=== PATIENT | female | born 1950 | race Caucasian/White ===

== ENCOUNTER 2021-06-12 13:07 | Inpatient (IN) ==
[2021-06-12] MEDS ORDERED: SODIUM CHLORIDE 0.9% 1,000 ML IV STA (13:11)
[2021-06-12 14:12] LABS: Basophils # 0.1 10*3/uL (0.0-0.2); Basophils % 0.3 % (0.0-0.8); Eosinophils % 0.2 % (0.00-10.9); Hematocrit 35.8 VOL% (35.7-47.0); Hemoglobin 12.4 GM/DL (12.0-16.0); Immature Granulocytes % 0.5 %; Immature Granulocytes Absolute 0.08 #; Lymphocytes # 0.9 10*3/uL (1.4-4.0); Lymphocytes % 5.2 % (21.3-54.2); Mean Corpuscular HGB Conc 34.6 GM/DL (32-36); Mean Corpuscular Volume 82.1 FL (87-102); Mean Platelet Volume 12.1 FL (9.6-12.0); Monocytes % 3.8 % (1.7-12.7); NRBC # 0.04 10*3/uL; Platelet Count 440 T/CUMM (130-400); Red Blood Count 4.36 MC/CUMM (3.8-5.5); Red Cell Distribution Width 15.3 % (9.3-17.3); White Blood Count 17.4 T/CUMM (4-12)
[2021-06-12] MEDS ORDERED: diphenhydrAMINE 50 MG/1 ML VIAL IV STA (14:14)
[2021-06-12] MEDS ORDERED: methylPREDNISolone SOD SUC 125 MG/2 ML VIAL IV STA (14:14)
[2021-06-12] MEDS ORDERED: LEVOFLOXACIN INJ 750 MG in PREMIX 1 EACH IV STA (14:15)
[2021-06-12] MEDS ORDERED: CLINDAMYCIN INJ 900 MG/50 ML PREMIX IV STA (14:15)
[2021-06-12 14:25] LABS: INR 1.8; PT Patient Result 19.8 SECS (10.5-12.0); Partial Thromboplastin Time 23.1 SECS (23.8-32.1)
[2021-06-12 14:27] LABS: Albumin 2.3 G/DL (3.4-5.0); Bilirubin,Total 1.8 MG/DL (0.20-1.00); Osmolality,Calculated 285.8 MOS/KG (273-304); Potassium 2.6 MMOL/L (3.5-5.1); Total Protein 7.4 G/DL (6.4-8.2)
[2021-06-12] MEDS ORDERED: SODIUM CHLORIDE 0.9% 2,700 ML IV ONE (14:37)
[2021-06-12 14:45] LABS: Band Neutrophils 1 % (0-10); Lymphocytes 1 % (20-55); Segmented Neutrophils 95 % (50-85); Total Cells Counted 100
[2021-06-12] MEDS ORDERED: ALBUTEROL 2.5 MG/3 ML NEB RESP TX PRN (15:11)
[2021-06-12] MEDS: POTASSIUM CHLORIDE RIDER 10 MEQ/100 ML PREMIX IV SCH ×2 (15:17→16:19)
[2021-06-12 15:21] LABS: Hypochromia Slight; Platelet Estimate Increased; Schistocytes Slight
[2021-06-12 15:21] LABS: INR 1.7; PT Patient Result 18.8 SECS (10.5-12.0); Partial Thromboplastin Time 29.7 SECS (23.8-32.1)
[2021-06-12] MEDS ORDERED: metroNIDAZOLE INJ 500 MG/100 ML PREMIX IV ONE (15:22)
[2021-06-12] MEDS ORDERED: LEVOFLOXACIN INJ 750 MG/150 ML PREMIX IV ONE (15:22)
[2021-06-12 15:44] LABS: Bacteria,Urine Occasional /HPF (Few); Bilirubin,Urine Negative (Negative); Blood, Urine Small mg/dL (Negative); Glucose,Urine (UA) 50 mg/dL (Negative); Hyaline Casts,Urine 66 /LPF (0-3); Ketones,Urine 5 mg/dL (Negative); Mucus,Urine Few /LPF (Occasional); Nitrite,Urine Negative (Negative); Protein,Urine 100 MG/DL; RBC,Urine 2 /HPF (0-4); Squamous Epithelial Cell,Urine Occasional /HPF (0-10); Urine Appearance CLOUDY (Clear); Urine Color Amber (Yellow); Urine Specific Gravity 1.028 (1.001-1.035); Urine Urobilinogen < 2.0 EU/DL (<2.0)
[2021-06-12] MEDS ORDERED: ROCURONIUM 50 MG/5 ML VIAL IV ONE (15:57)
[2021-06-12] MEDS ORDERED: propofoL 200 MG/20 ML VIAL IV ONE (15:57)
[2021-06-12] MEDS ORDERED: ETOMIDATE 40 MG/20 ML VIAL IV ONE (15:57)
[2021-06-12] MEDS ORDERED: LIDOCAINE 2% 5 ML VIAL ONE (15:57)
[2021-06-12] MEDS ORDERED: SEVOFLURANE 1 UNIT/15 MINUTE INH ONE (15:57)
[2021-06-12] MEDS ORDERED: SUCCINYLCHOLINE 200 MG/10 ML VIAL ONE (15:57)
[2021-06-12] MEDS ORDERED: fentaNYL 100 MCG/2 ML VIAL ONE ×2 (15:57→17:17)
[2021-06-12] MEDS: FAMOTIDINE 20 MG/2 ML VIAL IV SCH (16:01)
[2021-06-12] MEDS ORDERED: PHENYLEPHRINE DRIP 20 MG/250 ML PREMIX IV ONE (16:13)
[2021-06-12] MEDS ORDERED: MIDAZOLAM 2 MG/2 ML VIAL ONE (16:46)
[2021-06-12] MEDS ORDERED: SODIUM BICARBONATE 50 MEQ/50 ML VIAL IV ONE (17:19)
[2021-06-12] MEDS ORDERED: ALBUMIN 5% 12.5 GM/250 ML VIAL IV ONE (17:28)
[2021-06-12] MEDS: LACTATED RINGERS 1,000 ML IV SCH ×2 (17:46→23:14)
[2021-06-12] MEDS: DOPamine 800 MG/250 ML PREMIX IV SCH (17:47)
[2021-06-12 19:57] LABS: ABG Base Excess -10.9 MMOL/L (-2.5-2.5); ABG HCO3 15.9 MMOL/L (20-26); ABG Oxygen Saturation 98.6 % (95-100); ABG PCO2 41.4 MM HG (35-48); ABG PH 7.213 (7.35-7.45); ABG TCO2 15.2 MMOL/L (23-27); Glucose Heart Surgery 140 MG/DL (74-106); Hematocrit Heart Surgery 36.9 PERCENT (37-47)
[2021-06-12 20:00] LABS: Potassium Heart/CVR 2.3 MMOL/L (3.5-5.1)
[2021-06-12] MEDS: PIPERACILLIN/TAZOBACTAM 3,375 MG in SODIUM CHLORIDE 0.9% 100 ML IV SCH (20:10)
[2021-06-12] MEDS: POTASSIUM CHLORIDE RIDER 10 MEQ/100 ML PREMIX IV PRN ×3 (20:29→22:22)
[2021-06-12] MEDS: MIDAZOLAM 100 MG in SODIUM CHLORIDE 0.9% 80 ML IV PRN (22:30)
[2021-06-13] MEDS: POTASSIUM CHLORIDE RIDER 10 MEQ/100 ML PREMIX IV PRN ×11 (00:27→23:14)
[2021-06-13 01:23] LABS: Basophils % 0.3 % (0.0-0.8); Hemoglobin 10.5 GM/DL (12.0-16.0); Immature Granulocytes % 0.7 %; Immature Granulocytes Absolute 0.08 #; Lymphocytes # 0.7 10*3/uL (1.4-4.0); Lymphocytes % 6.7 % (21.3-54.2); Mean Corpuscular Volume 81.3 FL (87-102); Mean Platelet Volume 11.2 FL (9.6-12.0); Monocytes % 3.1 % (1.7-12.7); NRBC # 0.02 10*3/uL; Neutrophils % 89.2 % (38.7-73.9); Platelet Count 392 T/CUMM (130-400); Red Blood Count 3.69 MC/CUMM (3.8-5.5); Red Cell Distribution Width 15.3 % (9.3-17.3)
[2021-06-13 01:39] LABS: Calcium 6.5 MG/DL (8.5-10.1); Osmolality,Calculated 290.3 MOS/KG (273-304)
[2021-06-13 01:43] LABS: Albumin 1.6 G/DL (3.4-5.0); Bilirubin,Total 2.3 MG/DL (0.20-1.00); Calcium 6.4 MG/DL (8.5-10.1); Osmolality,Calculated 289.3 MOS/KG (273-304); Total Protein 5.3 G/DL (6.4-8.2)
[2021-06-13 01:49] LABS: Acanthocytes 1+; Platelet Estimate Increased
[2021-06-13] MEDS: PIPERACILLIN/TAZOBACTAM 3,375 MG in SODIUM CHLORIDE 0.9% 100 ML IV SCH ×3 (02:45→23:40)
[2021-06-13] MEDS: FAMOTIDINE 20 MG/2 ML VIAL IV SCH ×2 (02:46→17:51)
[2021-06-13] MEDS: metroNIDAZOLE INJ 500 MG/100 ML PREMIX IV SCH ×3 (02:46→21:38)
[2021-06-13 03:05] LABS: Lymphocytes 11 % (20-55); Segmented Neutrophils 85 % (50-85); Total Cells Counted 100
[2021-06-13 03:13] LABS: ABG Base Excess -8.2 MMOL/L (-2.5-2.5); ABG HCO3 13.9 MMOL/L (20-26); ABG Oxygen Saturation 99.6 % (95-100); ABG PH 7.456 (7.35-7.45); ABG PO2 481.2 MM HG (80-95); ABG TCO2 14.5 MMOL/L (23-27)
[2021-06-13 03:18] LABS: ABG PCO2 20.2 MM HG (35-48)
[2021-06-13 05:53] LABS: Calcium 6.3 MG/DL (8.5-10.1); Potassium 2.9 MMOL/L (3.5-5.1)
[2021-06-13] MEDS: LACTATED RINGERS 1,000 ML IV SCH ×3 (06:25→16:43)
[2021-06-13] MEDS ORDERED: SEVOFLURANE 1 UNIT/15 MINUTE INH ONE ×3 (10:01→11:25)
[2021-06-13] MEDS ORDERED: ROCURONIUM 50 MG/5 ML VIAL IV ONE (10:01)
[2021-06-13] MEDS: MIDAZOLAM 100 MG in SODIUM CHLORIDE 0.9% 80 ML IV PRN ×2 (10:03→23:50)
[2021-06-13] MEDS ORDERED: MIDAZOLAM 10 MG/2 ML VIAL ONE (10:05)
[2021-06-13] MEDS ORDERED: LIDOCAINE 1%/EPI INJ 20 ML VIAL ONE (10:10)
[2021-06-13] MEDS ORDERED: BUPIVACAINE MPF 0.25% 30 ML VIAL ONE (10:10)
[2021-06-13] MEDS ORDERED: MINERAL OIL/PETROLATUM OPH OINT 3.5 GM TUBE ONE (10:47)
[2021-06-13] MEDS ORDERED: PHENYLEPHRINE 1 MG/10 ML SYRINGE IV ONE (10:48)
[2021-06-13] MEDS ORDERED: SODIUM CHLORIDE 0.9% 250 ML IV ONE (10:53)
[2021-06-13] MEDS ORDERED: PHENYLEPHRINE 10 MG/1 ML VIAL IV ONE (10:54)
[2021-06-13] MEDS ORDERED: MAGNESIUM SULF RIDER 2 GM/50 ML PREMIX IV ONE (11:17)
[2021-06-13] MEDS ORDERED: LACTATED RINGERS 1,000 ML IV ONE (11:25)
[2021-06-13] MEDS: DOPamine 800 MG/250 ML PREMIX IV SCH (16:43)
[2021-06-13] MEDS ORDERED: SODIUM BICARBONATE 50 MEQ/50 ML VIAL IV ONE (17:35)
[2021-06-13] MEDS: SODIUM BICARB INJ 150 MEQ in SODIUM CHLORIDE 0.45% 1,000 ML IV SCH (18:36)
[2021-06-13] MEDS ORDERED: SODIUM CHLORIDE 0.9% 500 ML IV ONE (22:03)
[2021-06-13 22:24] LABS: Basophils % 0.1 % (0.0-0.8); Hematocrit 26.2 VOL% (35.7-47.0); Hemoglobin 9.3 GM/DL (12.0-16.0); Immature Granulocytes % 2.6 %; Immature Granulocytes Absolute 0.21 #; Lymphocytes # 0.7 10*3/uL (1.4-4.0); Mean Corpuscular HGB Conc 35.5 GM/DL (32-36); Mean Corpuscular Volume 80.1 FL (87-102); Mean Platelet Volume 11.3 FL (9.6-12.0); Monocytes % 2.5 % (1.7-12.7); NRBC # 0.05 10*3/uL; Neutrophils % 85.8 % (38.7-73.9); Platelet Count 410 T/CUMM (130-400); Red Blood Count 3.27 MC/CUMM (3.8-5.5); Red Cell Distribution Width 14.8 % (9.3-17.3)
[2021-06-13 22:53] LABS: Albumin 1.2 G/DL (3.4-5.0); Calcium 6.3 MG/DL (8.5-10.1); Osmolality,Calculated 295.6 MOS/KG (273-304); Potassium 2.9 MMOL/L (3.5-5.1)
[2021-06-13 23:33] LABS: Lymphocytes 14 % (20-55); Nucleated Red Blood Cells 1 (0-5); Platelet Estimate Increased; Segmented Neutrophils 83 % (50-85); Total Cells Counted 100
[2021-06-13 23:34] LABS: ABG Base Excess -2.1 MMOL/L (-2.5-2.5); ABG HCO3 18.4 MMOL/L (20-26); ABG Oxygen Saturation 99.1 % (95-100); ABG PH 7.589 (7.35-7.45); ABG PO2 259.8 MM HG (80-95)
[2021-06-13 23:34] LABS: Polychromasia 1+
[2021-06-13 23:37] LABS: ABG PCO2 19.7 MM HG (35-48)
[2021-06-14] MEDS ORDERED: SODIUM BICARBONATE 50 MEQ/50 ML VIAL IV ONE (00:03)
[2021-06-14] MEDS ORDERED: SODIUM CHLORIDE 0.9% 1,000 ML IV ONE (00:05)
[2021-06-14] MEDS ORDERED: MORPHINE 4 MG/1 ML VIAL IV ONE (00:06)
[2021-06-14] MEDS: LACTATED RINGERS 1,000 ML IV SCH ×5 (00:23→23:08)
[2021-06-14 02:41] LABS: Osmolality,Calculated 296.4 MOS/KG (273-304); Potassium 2.6 MMOL/L (3.5-5.1)
[2021-06-14 02:43] LABS: Calcium 5.8 MG/DL (8.5-10.1)
[2021-06-14] MEDS ORDERED: CALCIUM GLUCONATE RIDER 2,000 MG/100 ML PREMIX IV ONE (03:05)
[2021-06-14] MEDS: POTASSIUM CHLORIDE RIDER 10 MEQ/100 ML PREMIX IV PRN ×5 (03:10→07:38)
[2021-06-14] MEDS: FAMOTIDINE 20 MG/2 ML VIAL IV SCH ×2 (03:41→16:25)
[2021-06-14 04:22] LABS: ABG Base Excess -1.6 MMOL/L (-2.5-2.5); ABG HCO3 20.3 MMOL/L (20-26); ABG Oxygen Saturation 98.7 % (95-100); ABG PCO2 23.7 MM HG (35-48); ABG PO2 155.3 MM HG (80-95)
[2021-06-14] MEDS: metroNIDAZOLE INJ 500 MG/100 ML PREMIX IV SCH (05:35)
[2021-06-14] MEDS: PIPERACILLIN/TAZOBACTAM 3,375 MG in SODIUM CHLORIDE 0.9% 100 ML IV SCH ×2 (06:43→17:02)
[2021-06-14 06:48] LABS: Basophils % 0.1 % (0.0-0.8); Hematocrit 22.6 VOL% (35.7-47.0); Hemoglobin 8.1 GM/DL (12.0-16.0); Immature Granulocytes % 5.1 %; Immature Granulocytes Absolute 0.42 #; Lymphocytes # 0.9 10*3/uL (1.4-4.0); Lymphocytes % 11.4 % (21.3-54.2); Mean Corpuscular HGB Conc 35.8 GM/DL (32-36); Mean Corpuscular Volume 79.6 FL (87-102); Mean Platelet Volume 11.3 FL (9.6-12.0); Monocytes % 2.8 % (1.7-12.7); NRBC # 0.04 10*3/uL; Neutrophils % 80.6 % (38.7-73.9); Platelet Count 349 T/CUMM (130-400); Red Blood Count 2.84 MC/CUMM (3.8-5.5); Red Cell Distribution Width 14.5 % (9.3-17.3); White Blood Count 8.2 T/CUMM (4-12)
[2021-06-14 07:18] LABS: Calcium 6.4 MG/DL (8.5-10.1); Hypochromia 1+; Lymphocytes 9 % (20-55); Microcytosis 1+; Osmolality,Calculated 297.3 MOS/KG (273-304); Platelet Estimate Adequate; Segmented Neutrophils 88 % (50-85); Total Cells Counted 100; Total Protein 4.3 G/DL (6.4-8.2)
[2021-06-14 07:33] LABS: Bilirubin,Total 2.7 MG/DL (0.20-1.00)
[2021-06-14] MEDS: SODIUM BICARB INJ 150 MEQ in SODIUM CHLORIDE 0.45% 1,000 ML IV SCH ×3 (08:20→17:09)
[2021-06-14] MEDS ORDERED: POTASSIUM PHOSPHATE 30 MMOL in SODIUM CHLORIDE 0.9% 250 ML IV ONE (13:00)
[2021-06-14] MEDS: DOPamine 800 MG/250 ML PREMIX IV SCH (16:05)
[2021-06-14] MEDS: MORPHINE 4 MG/1 ML VIAL IV PRN (21:45)
[2021-06-14] MEDS: MIDAZOLAM 100 MG in SODIUM CHLORIDE 0.9% 80 ML IV PRN (21:56)
[2021-06-15] MEDS: PIPERACILLIN/TAZOBACTAM 3,375 MG in SODIUM CHLORIDE 0.9% 100 ML IV SCH ×2 (01:50→09:32)
[2021-06-15] MEDS: MORPHINE 4 MG/1 ML VIAL IV PRN ×3 (01:52→15:36)
[2021-06-15] MEDS: FAMOTIDINE 20 MG/2 ML VIAL IV SCH ×2 (02:55→15:36)
[2021-06-15 03:44] LABS: Basophils % 0.1 % (0.0-0.8); Hematocrit 21.5 VOL% (35.7-47.0); Hemoglobin 7.6 GM/DL (12.0-16.0); Immature Granulocytes % 9.9 %; Immature Granulocytes Absolute 0.86 #; Lymphocytes # 1.2 10*3/uL (1.4-4.0); Lymphocytes % 14.1 % (21.3-54.2); Mean Corpuscular HGB Conc 35.3 GM/DL (32-36); Mean Corpuscular Volume 81.4 FL (87-102); Mean Platelet Volume 11.3 FL (9.6-12.0); Monocytes % 4.7 % (1.7-12.7); NRBC # 0.16 10*3/uL; Neutrophils % 71.2 % (38.7-73.9); Platelet Count 282 T/CUMM (130-400); Red Blood Count 2.64 MC/CUMM (3.8-5.5); Red Cell Distribution Width 14.8 % (9.3-17.3); White Blood Count 8.7 T/CUMM (4-12)
[2021-06-15 04:12] LABS: ABG Base Excess 0.3 MMOL/L (-2.5-2.5); ABG HCO3 22.5 MMOL/L (20-26); ABG Oxygen Saturation 98.4 % (95-100); ABG PCO2 27.1 MM HG (35-48); ABG PH 7.538 (7.35-7.45); ABG PO2 127.6 MM HG (80-95); ABG TCO2 23.4 MMOL/L (23-27); Allen Test Positive; Pt O2 Delivery Device Ventilator
[2021-06-15 04:18] LABS: Albumin 0.9 G/DL (3.4-5.0); Bilirubin,Total 2.7 MG/DL (0.20-1.00); Calcium 6.2 MG/DL (8.5-10.1); Osmolality,Calculated 294.4 MOS/KG (273-304); Potassium 3.1 MMOL/L (3.5-5.1); Total Protein 4.4 G/DL (6.4-8.2)
[2021-06-15 04:20] LABS: Eosinophils 1 % (0-10); Hypochromia 1+; Lymphocytes 10 % (20-55); Microcytosis 1+; Nucleated Red Blood Cells 2 (0-5); Platelet Estimate Adequate; Segmented Neutrophils 83 % (50-85); Total Cells Counted 100
[2021-06-15] MEDS: POTASSIUM CHLORIDE RIDER 10 MEQ/100 ML PREMIX IV PRN ×4 (05:56→10:43)
[2021-06-15] MEDS: SODIUM BICARB INJ 150 MEQ in SODIUM CHLORIDE 0.45% 1,000 ML IV SCH (07:03)
[2021-06-15] MEDS: LACTATED RINGERS 1,000 ML IV SCH ×2 (07:30→15:09)
[2021-06-15] MEDS ORDERED: POTASSIUM PHOSPHATE 30 MMOL in SODIUM CHLORIDE 0.9% 250 ML IV ONE (10:00)
[2021-06-15] MEDS: DEXMEDETOMIDINE 200 MCG in SODIUM CHLORIDE 0.9% 48 ML IV PRN ×2 (10:17→13:38)
[2021-06-15] MEDS ORDERED: NOREPINEPHRINE 4 MG/4 ML VIAL IV ONE (11:16)
[2021-06-15] MEDS: NOREPINEPHRINE 8 MG in SODIUM CHLORIDE 0.9% 242 ML IV PRN (11:23)
[2021-06-15] MEDS: DOPamine 800 MG/250 ML PREMIX IV SCH (15:13)
[2021-06-15] MEDS: fentaNYL 25 MCG/HR PATCH TRANSDERM SCH (15:37)
[2021-06-15] MEDS: DEXMEDETOMIDINE 400 MCG in SODIUM CHLORIDE 0.9% 96 ML IV PRN (17:28)
[2021-06-15] MEDS: AMPICILLIN INJ 500 MG in SODIUM CHLORIDE 0.9% 100 ML IV SCH ×2 (17:34→21:12)
[2021-06-16] MEDS: DEXMEDETOMIDINE 400 MCG in SODIUM CHLORIDE 0.9% 96 ML IV PRN ×4 (00:20→21:22)
[2021-06-16] MEDS: LACTATED RINGERS 1,000 ML IV SCH ×3 (00:40→16:00)
[2021-06-16] MEDS: MORPHINE 4 MG/1 ML VIAL IV PRN ×3 (02:30→15:58)
[2021-06-16] MEDS: FAMOTIDINE 20 MG/2 ML VIAL IV SCH ×2 (03:38→15:59)
[2021-06-16] MEDS: AMPICILLIN INJ 500 MG in SODIUM CHLORIDE 0.9% 100 ML IV SCH ×4 (03:39→21:11)
[2021-06-16 03:57] LABS: Basophils % 0.4 % (0.0-0.8); Eosinophils % 0.4 % (0.00-10.9); Hematocrit 27.1 VOL% (35.7-47.0); Hemoglobin 9.1 GM/DL (12.0-16.0); Immature Granulocytes % 16.2 %; Immature Granulocytes Absolute 1.84 #; Lymphocytes # 2.3 10*3/uL (1.4-4.0); Lymphocytes % 20.2 % (21.3-54.2); Mean Corpuscular HGB Conc 33.6 GM/DL (32-36); Mean Corpuscular Volume 85.5 FL (87-102); Mean Platelet Volume 11.7 FL (9.6-12.0); Monocytes % 5.5 % (1.7-12.7); NRBC # 0.69 10*3/uL; Neutrophils % 57.3 % (38.7-73.9); Platelet Count 230 T/CUMM (130-400); Red Blood Count 3.17 MC/CUMM (3.8-5.5); Red Cell Distribution Width 15.7 % (9.3-17.3); White Blood Count 11.4 T/CUMM (4-12)
[2021-06-16 04:05] LABS: Bilirubin,Total 1.9 MG/DL (0.20-1.00); Calcium 6.4 MG/DL (8.5-10.1); Potassium 4.1 MMOL/L (3.5-5.1); Total Protein 4.9 G/DL (6.4-8.2)
[2021-06-16 04:22] LABS: Band Neutrophils 1 % (0-10); Hypochromia Slight; Lymphocytes 13 % (20-55); Microcytosis Slight; Nucleated Red Blood Cells 3 (0-5); Platelet Estimate Normal; Segmented Neutrophils 76 % (50-85); Total Cells Counted 100
[2021-06-16 04:56] LABS: ABG Base Excess -2.8 MMOL/L (-2.5-2.5); ABG HCO3 22.1 MMOL/L (20-26); ABG Oxygen Saturation 98.8 % (95-100); ABG PCO2 27.3 MM HG (35-48); ABG PH 7.477 (7.35-7.45); ABG TCO2 18.9 MMOL/L (23-27)
[2021-06-16] MEDS: NOREPINEPHRINE 8 MG in SODIUM CHLORIDE 0.9% 242 ML IV PRN (05:52)
[2021-06-16] MEDS ORDERED: POTASSIUM PHOSPHATE 30 MMOL in SODIUM CHLORIDE 0.9% 250 ML IV ONE ×2 (08:47→17:00)
[2021-06-16] MEDS: SODIUM BICARBONATE 650 MG TABLET PO SCH ×3 (11:43→20:07)
[2021-06-16] MEDS: POLYETHYLENE GLYCOL POWDER 17 GM PACK PO SCH (11:44)
[2021-06-16] MEDS: SODIUM HYPOCHLORITE 0.25% IRRIG 473 ML BOTTLE TOP SCH ×2 (11:44→20:06)
[2021-06-16] MEDS: VANCOMYCIN INJ 1,250 MG in SODIUM CHLORIDE 0.9% 250 ML IV SCH (15:27)
[2021-06-16] MEDS: DOPamine 800 MG/250 ML PREMIX IV SCH (15:33)
[2021-06-17] MEDS: MORPHINE 4 MG/1 ML VIAL IV PRN ×3 (01:58→20:16)
[2021-06-17] MEDS: LACTATED RINGERS 1,000 ML IV SCH (02:10)
[2021-06-17] MEDS: FAMOTIDINE 20 MG/2 ML VIAL IV SCH ×2 (02:31→15:38)
[2021-06-17 04:39] LABS: Albumin 0.9 G/DL (3.4-5.0); Bilirubin,Total 1.3 MG/DL (0.20-1.00); Calcium 6.4 MG/DL (8.5-10.1); Osmolality,Calculated 300.3 MOS/KG (273-304); Potassium 3.6 MMOL/L (3.5-5.1); Total Protein 4.5 G/DL (6.4-8.2)
[2021-06-17] MEDS: AMPICILLIN INJ 500 MG in SODIUM CHLORIDE 0.9% 100 ML IV SCH ×4 (04:58→21:37)
[2021-06-17] MEDS: DEXMEDETOMIDINE 400 MCG in SODIUM CHLORIDE 0.9% 96 ML IV PRN ×3 (05:12→17:45)
[2021-06-17] MEDS: POTASSIUM CHLORIDE RIDER 10 MEQ/100 ML PREMIX IV PRN ×2 (05:28→06:27)
[2021-06-17 06:06] LABS: ABG Base Excess -3.1 MMOL/L (-2.5-2.5); ABG HCO3 21.8 MMOL/L (20-26); ABG Oxygen Saturation 98.7 % (95-100); ABG PCO2 29.1 MM HG (35-48); ABG PH 7.448 (7.35-7.45); ABG TCO2 18.6 MMOL/L (23-27)
[2021-06-17 07:43] LABS: Basophils % 0.3 % (0.0-0.8); Eosinophils # 0.1 10*3/uL (0.0-0.87); Eosinophils % 0.4 % (0.00-10.9); Hematocrit 28.1 VOL% (35.7-47.0); Hemoglobin 8.7 GM/DL (12.0-16.0); Immature Granulocytes % 17.3 %; Immature Granulocytes Absolute 2.66 #; Lymphocytes # 2.6 10*3/uL (1.4-4.0); Lymphocytes % 16.7 % (21.3-54.2); Mean Corpuscular Volume 90.9 FL (87-102); Mean Platelet Volume 12.4 FL (9.6-12.0); Monocytes % 6.4 % (1.7-12.7); NRBC # 0.33 10*3/uL; Neutrophils % 58.9 % (38.7-73.9); Red Blood Count 3.09 MC/CUMM (3.8-5.5); Red Cell Distribution Width 16.7 % (9.3-17.3)
[2021-06-17 07:47] LABS: Platelet Count 119 T/CUMM (130-400); White Blood Count 15.4 T/CUMM (4-12)
[2021-06-17] MEDS ORDERED: LACTATED RINGERS 1,000 ML IV ONE (08:24)
[2021-06-17] MEDS ORDERED: SODIUM BICARBONATE 50 MEQ/50 ML VIAL IV ONE (08:27)
[2021-06-17] MEDS ORDERED: POTASSIUM PHOSPHATE 30 MMOL in SODIUM CHLORIDE 0.9% 250 ML IV ONE (08:30)
[2021-06-17 09:08] LABS: Band Neutrophils 3 % (0-10); Hypochromia 1+; Lymphocytes 13 % (20-55); Metamyelocytes 2 %; Microcytosis 1+; Myelocytes 1 %; Nucleated Red Blood Cells 2 (0-5); Polychromasia Slight; Segmented Neutrophils 71 % (50-85); Total Cells Counted 100
[2021-06-17] MEDS: POLYETHYLENE GLYCOL POWDER 17 GM PACK PO SCH (09:31)
[2021-06-17] MEDS: SODIUM BICARB INJ 100 MEQ in SODIUM CHLORIDE 0.45% 1,000 ML IV SCH ×2 (09:32→21:35)
[2021-06-17] MEDS: VANCOMYCIN INJ 1,250 MG in SODIUM CHLORIDE 0.9% 250 ML IV SCH (09:34)
[2021-06-17] MEDS: SODIUM HYPOCHLORITE 0.25% IRRIG 473 ML BOTTLE TOP SCH ×2 (10:05→21:28)
[2021-06-17] MEDS: DOPamine 800 MG/250 ML PREMIX IV SCH (14:41)
[2021-06-18] MEDS: DEXMEDETOMIDINE 400 MCG in SODIUM CHLORIDE 0.9% 96 ML IV PRN ×3 (00:39→17:23)
[2021-06-18] MEDS: MORPHINE 4 MG/1 ML VIAL IV PRN ×2 (01:30→21:56)
[2021-06-18 03:58] LABS: Basophils % 0.3 % (0.0-0.8); Eosinophils # 0.1 10*3/uL (0.0-0.87); Eosinophils % 1.1 % (0.00-10.9); Hematocrit 25.2 VOL% (35.7-47.0); Hemoglobin 7.9 GM/DL (12.0-16.0); Immature Granulocytes % 20.9 %; Mean Corpuscular HGB Conc 31.3 GM/DL (32-36); Mean Platelet Volume 12.7 FL (9.6-12.0); Monocytes % 4.8 % (1.7-12.7); NRBC # 0.32 10*3/uL; Neutrophils % 55.9 % (38.7-73.9); Platelet Count 112 T/CUMM (130-400); Red Cell Distribution Width 16.5 % (9.3-17.3); White Blood Count 11.5 T/CUMM (4-12)
[2021-06-18 04:17] LABS: Calcium 5.9 MG/DL (8.5-10.1); Osmolality,Calculated 297.3 MOS/KG (273-304); Potassium 3.6 MMOL/L (3.5-5.1)
[2021-06-18] MEDS: FAMOTIDINE 20 MG/2 ML VIAL IV SCH ×2 (04:19→15:02)
[2021-06-18] MEDS: VANCOMYCIN INJ 1,250 MG in SODIUM CHLORIDE 0.9% 250 ML IV SCH (04:20)
[2021-06-18] MEDS: AMPICILLIN INJ 500 MG in SODIUM CHLORIDE 0.9% 100 ML IV SCH ×2 (04:20→10:22)
[2021-06-18 04:27] LABS: Band Neutrophils 2 % (0-10); Eosinophils 1 % (0-10); Hypochromia 1+; Lymphocytes 18 % (20-55); Metamyelocytes 1 %; Microcytosis 1+; Myelocytes 5 %; Nucleated Red Blood Cells 4 (0-5); Polychromasia Slight; Segmented Neutrophils 62 % (50-85); Total Cells Counted 100
[2021-06-18 04:42] LABS: ABG Base Excess -0.3 MMOL/L (-2.5-2.5); ABG HCO3 22.3 MMOL/L (20-26); ABG Oxygen Saturation 97.8 % (95-100); ABG PCO2 28.5 MM HG (35-48); ABG PH 7.511 (7.35-7.45); ABG PO2 103.7 MM HG (80-95); ABG TCO2 23.2 MMOL/L (23-27)
[2021-06-18] MEDS: POTASSIUM CHLORIDE RIDER 10 MEQ/100 ML PREMIX IV PRN ×2 (04:44→05:49)
[2021-06-18] MEDS: fentaNYL 25 MCG/HR PATCH TRANSDERM SCH (09:44)
[2021-06-18] MEDS: SODIUM BICARB INJ 100 MEQ in SODIUM CHLORIDE 0.45% 1,000 ML IV SCH (09:44)
[2021-06-18] MEDS: SODIUM HYPOCHLORITE 0.25% IRRIG 473 ML BOTTLE TOP SCH ×2 (09:47→21:23)
[2021-06-18] MEDS: POLYETHYLENE GLYCOL POWDER 17 GM PACK PO SCH (09:47)
[2021-06-18] MEDS: LORazepam 2 MG/1 ML VIAL IV PRN ×2 (10:21→16:36)
[2021-06-18] MEDS ORDERED: FUROSEMIDE 40 MG/4 ML VIAL IV ONE (15:06)
[2021-06-18] MEDS: AMPICILLIN INJ 1,000 MG in SODIUM CHLORIDE 0.9% 100 ML IV SCH ×2 (16:36→21:17)
[2021-06-19] MEDS: DEXMEDETOMIDINE 400 MCG in SODIUM CHLORIDE 0.9% 96 ML IV PRN ×4 (00:26→22:18)
[2021-06-19] MEDS: AMPICILLIN INJ 1,000 MG in SODIUM CHLORIDE 0.9% 100 ML IV SCH ×4 (03:20→21:22)
[2021-06-19] MEDS: FAMOTIDINE 20 MG/2 ML VIAL IV SCH ×2 (03:20→17:33)
[2021-06-19 03:52] LABS: ABG Base Excess -1.1 MMOL/L (-2.5-2.5); ABG HCO3 21.7 MMOL/L (20-26); ABG Oxygen Saturation 96.2 % (95-100); ABG PCO2 28.3 MM HG (35-48); ABG PH 7.502 (7.35-7.45); ABG TCO2 22.5 MMOL/L (23-27)
[2021-06-19] MEDS: MORPHINE 4 MG/1 ML VIAL IV PRN ×4 (05:12→22:15)
[2021-06-19 05:46] LABS: Basophils % 0.2 % (0.0-0.8); Eosinophils # 0.1 10*3/uL (0.0-0.87); Hemoglobin 8.4 GM/DL (12.0-16.0); Immature Granulocytes % 13.6 %; Immature Granulocytes Absolute 1.35 #; Lymphocytes # 1.4 10*3/uL (1.4-4.0); Lymphocytes % 14.2 % (21.3-54.2); Mean Corpuscular HGB Conc 31.1 GM/DL (32-36); Mean Corpuscular Volume 93.4 FL (87-102); Mean Platelet Volume 13.9 FL (9.6-12.0); Monocytes % 5.4 % (1.7-12.7); NRBC # 0.29 10*3/uL; Neutrophils % 65.6 % (38.7-73.9); Platelet Count 133 T/CUMM (130-400); Red Blood Count 2.89 MC/CUMM (3.8-5.5); Red Cell Distribution Width 16.5 % (9.3-17.3); White Blood Count 9.9 T/CUMM (4-12)
[2021-06-19 05:58] LABS: Albumin 0.8 G/DL (3.4-5.0); Bilirubin,Total 0.8 MG/DL (0.20-1.00); Calcium 6.9 MG/DL (8.5-10.1); Potassium 4.4 MMOL/L (3.5-5.1); Total Protein 4.5 G/DL (6.4-8.2)
[2021-06-19 06:10] LABS: Band Neutrophils 6 % (0-10); Eosinophils 1 % (0-10); Hypochromia Slight; Lymphocytes 12 % (20-55); Microcytosis Slight; Nucleated Red Blood Cells 5 (0-5); Platelet Estimate Normal; Segmented Neutrophils 78 % (50-85); Total Cells Counted 100
[2021-06-19] MEDS: LORazepam 2 MG/1 ML VIAL IV PRN ×2 (08:06→15:58)
[2021-06-19] MEDS: POLYETHYLENE GLYCOL POWDER 17 GM PACK PO SCH (08:59)
[2021-06-19] MEDS: SODIUM HYPOCHLORITE 0.25% IRRIG 473 ML BOTTLE TOP SCH ×2 (08:59→20:42)
[2021-06-19] MEDS ORDERED: FUROSEMIDE 40 MG/4 ML VIAL IV ONE (09:01)
[2021-06-19] MEDS: ENOXAPARIN 40 MG/0.4 ML SYRINGE SUBCUT SCH (17:33)
[2021-06-20] MEDS ORDERED: SODIUM CHLORIDE 0.9% 250 ML IV ONE (00:09)
[2021-06-20] MEDS: MORPHINE 4 MG/1 ML VIAL IV PRN ×2 (03:07→09:33)
[2021-06-20] MEDS: FAMOTIDINE 20 MG/2 ML VIAL IV SCH ×2 (03:09→17:43)
[2021-06-20 03:57] LABS: ABG Base Excess -0.1 MMOL/L (-2.5-2.5); ABG HCO3 24.3 MMOL/L (20-26); ABG Oxygen Saturation 96.3 % (95-100); ABG PCO2 32.9 MM HG (35-48); ABG PH 7.459 (7.35-7.45); ABG PO2 82.3 MM HG (80-95); ABG TCO2 21.7 MMOL/L (23-27)
[2021-06-20 04:13] LABS: Calcium 7.2 MG/DL (8.5-10.1); Osmolality,Calculated 287.1 MOS/KG (273-304); Potassium 4.3 MMOL/L (3.5-5.1)
[2021-06-20 04:17] LABS: Basophils % 0.4 % (0.0-0.8); Eosinophils # 0.1 10*3/uL (0.0-0.87); Eosinophils % 1.2 % (0.00-10.9); Hematocrit 26.9 VOL% (35.7-47.0); Hemoglobin 8.4 GM/DL (12.0-16.0); Immature Granulocytes % 10.5 %; Immature Granulocytes Absolute 1.03 #; Lymphocytes # 1.6 10*3/uL (1.4-4.0); Lymphocytes % 16.5 % (21.3-54.2); Mean Corpuscular HGB Conc 31.2 GM/DL (32-36); Mean Corpuscular Volume 92.8 FL (87-102); Monocytes % 5.7 % (1.7-12.7); NRBC # 0.19 10*3/uL; Neutrophils % 65.7 % (38.7-73.9); Platelet Count 71 T/CUMM (130-400); Red Cell Distribution Width 16.7 % (9.3-17.3); White Blood Count 9.8 T/CUMM (4-12)
[2021-06-20] MEDS: DEXMEDETOMIDINE 400 MCG in SODIUM CHLORIDE 0.9% 96 ML IV PRN ×3 (04:26→19:40)
[2021-06-20] MEDS: AMPICILLIN INJ 1,000 MG in SODIUM CHLORIDE 0.9% 100 ML IV SCH ×4 (04:27→21:32)
[2021-06-20 04:40] LABS: Eosinophils 2 % (0-10); Hypochromia 1+; Lymphocytes 16 % (20-55); Microcytosis 1+; Segmented Neutrophils 76 % (50-85); Total Cells Counted 100
[2021-06-20] MEDS: LORazepam 2 MG/1 ML VIAL IV PRN ×2 (05:31→09:47)
[2021-06-20] MEDS: SODIUM HYPOCHLORITE 0.25% IRRIG 473 ML BOTTLE TOP SCH ×2 (08:53→22:23)
[2021-06-20] MEDS: POLYETHYLENE GLYCOL POWDER 17 GM PACK PO SCH (08:53)
[2021-06-20] MEDS ORDERED: MORPHINE 4 MG/1 ML VIAL IV ONE (10:36)
[2021-06-20] MEDS ORDERED: LORazepam 2 MG/1 ML VIAL IV ONE (10:37)
[2021-06-20] MEDS: fentaNYL INJ 1,250 MCG in SODIUM CHLORIDE 0.9% 225 ML IV PRN (14:48)
[2021-06-21] MEDS: FAMOTIDINE 20 MG/2 ML VIAL IV SCH ×2 (02:30→17:54)
[2021-06-21] MEDS: DEXMEDETOMIDINE 400 MCG in SODIUM CHLORIDE 0.9% 96 ML IV PRN ×2 (02:45→09:09)
[2021-06-21 03:10] LABS: ABG Base Excess -0.9 MMOL/L (-2.5-2.5); ABG HCO3 23.7 MMOL/L (20-26); ABG Oxygen Saturation 97.6 % (95-100); ABG PCO2 35.6 MM HG (35-48); ABG PH 7.422 (7.35-7.45); ABG TCO2 21.4 MMOL/L (23-27)
[2021-06-21 04:26] LABS: Bilirubin,Total 0.9 MG/DL (0.20-1.00); Calcium 7.8 MG/DL (8.5-10.1); Osmolality,Calculated 288.1 MOS/KG (273-304); Potassium 4.2 MMOL/L (3.5-5.1); Total Protein 4.7 G/DL (6.4-8.2)
[2021-06-21] MEDS: AMPICILLIN INJ 1,000 MG in SODIUM CHLORIDE 0.9% 100 ML IV SCH ×4 (04:37→21:06)
[2021-06-21 06:06] LABS: Basophils % 0.3 % (0.0-0.8); Eosinophils # 0.1 10*3/uL (0.0-0.87); Eosinophils % 1.5 % (0.00-10.9); Hematocrit 25.5 VOL% (35.7-47.0); Hemoglobin 7.8 GM/DL (12.0-16.0); Immature Granulocytes % 8.4 %; Lymphocytes # 1.3 10*3/uL (1.4-4.0); Lymphocytes % 13.2 % (21.3-54.2); Mean Corpuscular HGB Conc 30.6 GM/DL (32-36); Mean Corpuscular Volume 93.8 FL (87-102); Mean Platelet Volume 13.1 FL (9.6-12.0); Monocytes % 5.6 % (1.7-12.7); NRBC # 0.11 10*3/uL; Platelet Count 200 T/CUMM (130-400); Red Blood Count 2.72 MC/CUMM (3.8-5.5); Red Cell Distribution Width 16.9 % (9.3-17.3); White Blood Count 9.5 T/CUMM (4-12)
[2021-06-21 06:36] LABS: Band Neutrophils 1 % (0-10); Eosinophils 2 % (0-10); Lymphocytes 17 % (20-55); Myelocytes 1 %; Segmented Neutrophils 72 % (50-85); Total Cells Counted 100
[2021-06-21 06:37] LABS: Hypochromia 1+; Microcytosis 1+; Polychromasia Slight
[2021-06-21] MEDS: fentaNYL INJ 1,250 MCG in SODIUM CHLORIDE 0.9% 225 ML IV PRN ×3 (07:10→22:00)
[2021-06-21] MEDS: SODIUM HYPOCHLORITE 0.25% IRRIG 473 ML BOTTLE TOP SCH ×2 (09:06→22:58)
[2021-06-21] MEDS: POLYETHYLENE GLYCOL POWDER 17 GM PACK PO SCH (09:06)
[2021-06-21] MEDS ORDERED: FUROSEMIDE 40 MG/4 ML VIAL IV ONE (10:19)
[2021-06-21] MEDS: MORPHINE 4 MG/1 ML VIAL IV PRN ×3 (14:07→21:00)
[2021-06-21] MEDS: LORazepam 2 MG/1 ML VIAL IV PRN ×2 (18:09→22:01)
[2021-06-21 20:56] LABS: HIT Interpretation Negative (Negative)
[2021-06-22] MEDS: MORPHINE 4 MG/1 ML VIAL IV PRN ×2 (01:45→08:56)
[2021-06-22] MEDS: LORazepam 2 MG/1 ML VIAL IV PRN ×3 (02:18→16:00)
[2021-06-22] MEDS: FAMOTIDINE 20 MG/2 ML VIAL IV SCH ×2 (02:37→16:00)
[2021-06-22 03:37] LABS: ABG Base Excess 0.6 MMOL/L (-2.5-2.5); ABG Oxygen Saturation 99.3 % (95-100); ABG PCO2 34.1 MM HG (35-48); ABG PH 7.459 (7.35-7.45); ABG TCO2 22.4 MMOL/L (23-27)
[2021-06-22] MEDS: AMPICILLIN INJ 1,000 MG in SODIUM CHLORIDE 0.9% 100 ML IV SCH ×4 (03:59→21:01)
[2021-06-22] MEDS: fentaNYL INJ 1,250 MCG in SODIUM CHLORIDE 0.9% 225 ML IV PRN ×4 (04:30→23:31)
[2021-06-22 06:08] LABS: Calcium 7.8 MG/DL (8.5-10.1); Osmolality,Calculated 277.8 MOS/KG (273-304); Potassium 4.2 MMOL/L (3.5-5.1)
[2021-06-22 06:15] LABS: Basophils # 0.1 10*3/uL (0.0-0.2); Basophils % 0.6 % (0.0-0.8); Eosinophils # 0.1 10*3/uL (0.0-0.87); Eosinophils % 1.1 % (0.00-10.9); Hemoglobin 13.4 GM/DL (12.0-16.0); Immature Granulocytes % 5.3 %; Immature Granulocytes Absolute 0.64 #; Lymphocytes # 1.2 10*3/uL (1.4-4.0); Lymphocytes % 10.1 % (21.3-54.2); Mean Corpuscular HGB Conc 30.5 GM/DL (32-36); Mean Corpuscular Volume 93.8 FL (87-102); Mean Platelet Volume 13.6 FL (9.6-12.0); Monocytes % 5.6 % (1.7-12.7); NRBC # 0.19 10*3/uL; Neutrophils % 77.3 % (38.7-73.9); Platelet Count 106 T/CUMM (130-400); Red Blood Count 4.69 MC/CUMM (3.8-5.5); Red Cell Distribution Width 18.5 % (9.3-17.3); White Blood Count 12.1 T/CUMM (4-12)
[2021-06-22] MEDS: SODIUM HYPOCHLORITE 0.25% IRRIG 473 ML BOTTLE TOP SCH ×3 (06:17→20:32)
[2021-06-22 06:40] LABS: Eosinophils 1 % (0-10); Lymphocytes 20 % (20-55); Nucleated Red Blood Cells 2 (0-5); Platelet Estimate Decreased; Segmented Neutrophils 76 % (50-85); Total Cells Counted 100
[2021-06-22] MEDS: POLYETHYLENE GLYCOL POWDER 17 GM PACK PO SCH (09:17)
[2021-06-23] MEDS: AMPICILLIN INJ 1,000 MG in SODIUM CHLORIDE 0.9% 100 ML IV SCH ×4 (03:12→21:18)
[2021-06-23] MEDS: FAMOTIDINE 20 MG/2 ML VIAL IV SCH ×2 (03:13→15:33)
[2021-06-23] MEDS: fentaNYL INJ 1,250 MCG in SODIUM CHLORIDE 0.9% 225 ML IV PRN ×5 (03:51→23:18)
[2021-06-23 05:22] LABS: ABG Base Excess 1.7 MMOL/L (-2.5-2.5); ABG HCO3 25.9 MMOL/L (20-26); ABG Oxygen Saturation 98.6 % (95-100); ABG PCO2 43.3 MM HG (35-48); ABG PH 7.398 (7.35-7.45); ABG TCO2 24.7 MMOL/L (23-27)
[2021-06-23] MEDS: LORazepam 2 MG/1 ML VIAL IV PRN ×3 (06:46→21:45)
[2021-06-23 07:03] LABS: Basophils # 0.1 10*3/uL (0.0-0.2); Basophils % 0.6 % (0.0-0.8); Eosinophils # 0.2 10*3/uL (0.0-0.87); Eosinophils % 1.5 % (0.00-10.9); Hematocrit 25.4 VOL% (35.7-47.0); Hemoglobin 7.7 GM/DL (12.0-16.0); Immature Granulocytes % 6.2 %; Immature Granulocytes Absolute 0.63 #; Lymphocytes # 1.5 10*3/uL (1.4-4.0); Lymphocytes % 14.7 % (21.3-54.2); Mean Corpuscular HGB Conc 30.3 GM/DL (32-36); Mean Corpuscular Volume 96.9 FL (87-102); Mean Platelet Volume 11.7 FL (9.6-12.0); Monocytes % 7.8 % (1.7-12.7); NRBC # 0.11 10*3/uL; Neutrophils % 69.2 % (38.7-73.9); Platelet Count 376 T/CUMM (130-400); Red Blood Count 2.62 MC/CUMM (3.8-5.5); Red Cell Distribution Width 17.4 % (9.3-17.3); White Blood Count 10.1 T/CUMM (4-12)
[2021-06-23 07:05] LABS: Calcium 7.5 MG/DL (8.5-10.1); Osmolality,Calculated 283.4 MOS/KG (273-304)
[2021-06-23] MEDS: MORPHINE 4 MG/1 ML VIAL IV PRN (07:08)
[2021-06-23 07:28] LABS: Anisocytosis 2+; Band Neutrophils 1 % (0-10); Lymphocytes 10 % (20-55); Metamyelocytes 3 %; Segmented Neutrophils 80 % (50-85); Total Cells Counted 100
[2021-06-23 07:29] LABS: Polychromasia Slight; Tear Drop Cells Few
[2021-06-23 07:30] LABS: Platelet Estimate Normal; Stomatocytes Few
[2021-06-23] MEDS: POLYETHYLENE GLYCOL POWDER 17 GM PACK PO SCH (08:20)
[2021-06-23] MEDS: ENOXAPARIN 40 MG/0.4 ML SYRINGE SUBCUT SCH (08:20)
[2021-06-23] MEDS: SODIUM HYPOCHLORITE 0.25% IRRIG 473 ML BOTTLE TOP SCH ×2 (10:11→20:55)
[2021-06-23] MEDS ORDERED: FUROSEMIDE 40 MG/4 ML VIAL IV SCH (15:00)
[2021-06-23] MEDS: PRAMIPEXOLE 0.25 MG TABLET PO SCH (20:55)
[2021-06-24] MEDS: fentaNYL INJ 1,250 MCG in SODIUM CHLORIDE 0.9% 225 ML IV PRN ×2 (02:45→06:51)
[2021-06-24] MEDS: AMPICILLIN INJ 1,000 MG in SODIUM CHLORIDE 0.9% 100 ML IV SCH ×4 (04:22→21:13)
[2021-06-24] MEDS: FAMOTIDINE 20 MG/2 ML VIAL IV SCH ×2 (04:22→17:25)
[2021-06-24 04:44] LABS: ABG Base Excess 3.8 MMOL/L (-2.5-2.5); ABG HCO3 27.8 MMOL/L (20-26); ABG PCO2 42.7 MM HG (35-48); ABG PH 7.431 (7.35-7.45); ABG TCO2 26.7 MMOL/L (23-27); Allen Test Positive; Pt O2 Delivery Device Ventilator
[2021-06-24 04:56] LABS: Basophils % 0.4 % (0.0-0.8); Eosinophils # 0.1 10*3/uL (0.0-0.87); Eosinophils % 1.6 % (0.00-10.9); Hematocrit 24.8 VOL% (35.7-47.0); Hemoglobin 7.4 GM/DL (12.0-16.0); Immature Granulocytes % 6.7 %; Immature Granulocytes Absolute 0.55 #; Lymphocytes # 1.2 10*3/uL (1.4-4.0); Lymphocytes % 14.7 % (21.3-54.2); Mean Corpuscular HGB Conc 29.8 GM/DL (32-36); Mean Corpuscular Volume 96.9 FL (87-102); Mean Platelet Volume 12.2 FL (9.6-12.0); Monocytes % 8.1 % (1.7-12.7); NRBC # 0.09 10*3/uL; Neutrophils % 68.5 % (38.7-73.9); Platelet Count 339 T/CUMM (130-400); Red Blood Count 2.56 MC/CUMM (3.8-5.5); Red Cell Distribution Width 17.5 % (9.3-17.3); White Blood Count 8.2 T/CUMM (4-12)
[2021-06-24] MEDS: LORazepam 2 MG/1 ML VIAL IV PRN ×2 (05:19→08:25)
[2021-06-24 05:21] LABS: Band Neutrophils 2 % (0-10); Eosinophils 2 % (0-10); Hypochromia 1+; Lymphocytes 14 % (20-55); Microcytosis 1+; Platelet Estimate Adequate; Segmented Neutrophils 79 % (50-85); Total Cells Counted 100
[2021-06-24 05:26] LABS: Calcium 7.6 MG/DL (8.5-10.1); Ferritin 237.4 ng/mL (8-252); Osmolality,Calculated 282.5 MOS/KG (273-304); Potassium 3.6 MMOL/L (3.5-5.1)
[2021-06-24] MEDS ORDERED: POTASSIUM CHLORIDE 20 MEQ TABLET PO ONE (08:07)
[2021-06-24] MEDS ORDERED: DEXMEDETOMIDINE 200 MCG in SODIUM CHLORIDE 0.9% 48 ML IV PRN (08:22)
[2021-06-24] MEDS ORDERED: LABETALOL 20 MG/4 ML SYRINGE IV ONE (08:22)
[2021-06-24] MEDS: MORPHINE 4 MG/1 ML VIAL IV PRN ×2 (08:25→20:33)
[2021-06-24] MEDS: ENOXAPARIN 40 MG/0.4 ML SYRINGE SUBCUT SCH (09:42)
[2021-06-24] MEDS: SODIUM HYPOCHLORITE 0.25% IRRIG 473 ML BOTTLE TOP SCH ×2 (09:42→21:01)
[2021-06-24] MEDS: FUROSEMIDE 40 MG/4 ML VIAL IV SCH ×2 (09:42→17:25)
[2021-06-24] MEDS: POLYETHYLENE GLYCOL POWDER 17 GM PACK PO SCH (09:43)
[2021-06-24 10:30] LABS: ABG Base Excess 3.7 MMOL/L (-2.5-2.5); ABG HCO3 27.7 MMOL/L (20-26); ABG Oxygen Saturation 94.4 % (95-100); ABG PCO2 43.1 MM HG (35-48); ABG PH 7.428 (7.35-7.45); ABG PO2 72.5 MM HG (80-95); ABG TCO2 26.3 MMOL/L (23-27); Allen Test Positive; Pt O2 Delivery Device Ventilator
[2021-06-24] MEDS: PRAMIPEXOLE 0.25 MG TABLET PO SCH (20:19)
[2021-06-25] MEDS: MORPHINE 4 MG/1 ML VIAL IV PRN ×4 (00:10→20:50)
[2021-06-25 04:19] LABS: ABG Base Excess 7.4 MMOL/L (-2.5-2.5); ABG Oxygen Saturation 95.2 % (95-100); ABG PCO2 46.4 MM HG (35-48); ABG PH 7.457 (7.35-7.45); ABG PO2 75.4 MM HG (80-95); ABG TCO2 33.5 MMOL/L (23-27); Allen Test Positive
[2021-06-25] MEDS: AMPICILLIN INJ 1,000 MG in SODIUM CHLORIDE 0.9% 100 ML IV SCH ×2 (04:25→10:07)
[2021-06-25] MEDS: FAMOTIDINE 20 MG/2 ML VIAL IV SCH ×2 (04:25→16:51)
[2021-06-25 06:45] LABS: Calcium 7.7 MG/DL (8.5-10.1); Osmolality,Calculated 275.1 MOS/KG (273-304); Potassium 4.3 MMOL/L (3.5-5.1)
[2021-06-25 07:34] LABS: Basophils % 0.3 % (0.0-0.8); Eosinophils # 0.1 10*3/uL (0.0-0.87); Hemoglobin 7.8 GM/DL (12.0-16.0); Immature Granulocytes % 3.4 %; Immature Granulocytes Absolute 0.31 #; Lymphocytes % 11.3 % (21.3-54.2); Mean Corpuscular Volume 96.3 FL (87-102); Monocytes % 9.4 % (1.7-12.7); NRBC # 0.05 10*3/uL; Neutrophils % 74.6 % (38.7-73.9); Platelet Count 492 T/CUMM (130-400); White Blood Count 9.2 T/CUMM (4-12)
[2021-06-25] MEDS: FUROSEMIDE 40 MG/4 ML VIAL IV SCH ×2 (10:06→16:50)
[2021-06-25] MEDS: POLYETHYLENE GLYCOL POWDER 17 GM PACK PO SCH (10:06)
[2021-06-25] MEDS: SODIUM HYPOCHLORITE 0.25% IRRIG 473 ML BOTTLE TOP SCH ×2 (10:06→20:15)
[2021-06-25] MEDS: ENOXAPARIN 40 MG/0.4 ML SYRINGE SUBCUT SCH (10:06)
[2021-06-25] MEDS: PRAMIPEXOLE 0.25 MG TABLET PO SCH (20:15)
[2021-06-26] MEDS: MORPHINE 4 MG/1 ML VIAL IV PRN ×4 (00:50→16:46)
[2021-06-26] MEDS: FAMOTIDINE 20 MG/2 ML VIAL IV SCH (03:40)
[2021-06-26 05:23] LABS: Basophils % 0.5 % (0.0-0.8); Eosinophils # 0.1 10*3/uL (0.0-0.87); Eosinophils % 1.2 % (0.00-10.9); Hematocrit 28.6 VOL% (35.7-47.0); Hemoglobin 8.8 GM/DL (12.0-16.0); Immature Granulocytes % 1.9 %; Immature Granulocytes Absolute 0.15 #; Lymphocytes # 1.2 10*3/uL (1.4-4.0); Lymphocytes % 15.8 % (21.3-54.2); Mean Corpuscular HGB Conc 30.8 GM/DL (32-36); Mean Corpuscular Volume 94.7 FL (87-102); Mean Platelet Volume 10.5 FL (9.6-12.0); NRBC # 0.02 10*3/uL; Neutrophils % 68.6 % (38.7-73.9); Platelet Count 562 T/CUMM (130-400); Red Blood Count 3.02 MC/CUMM (3.8-5.5); Red Cell Distribution Width 16.8 % (9.3-17.3); White Blood Count 7.7 T/CUMM (4-12)
[2021-06-26] MEDS: SODIUM HYPOCHLORITE 0.25% IRRIG 473 ML BOTTLE TOP SCH ×2 (07:53→22:13)
[2021-06-26] MEDS: ONDANSETRON 4 MG/2 ML VIAL IV PRN (08:15)
[2021-06-26] MEDS: LORazepam 2 MG/1 ML VIAL IV PRN (09:12)
[2021-06-26] MEDS ORDERED: ONDANSETRON 4 MG/2 ML VIAL IV ONE (09:26)
[2021-06-26] MEDS: ENOXAPARIN 40 MG/0.4 ML SYRINGE SUBCUT SCH (10:21)
[2021-06-26] MEDS: FUROSEMIDE 40 MG/4 ML VIAL IV SCH ×2 (10:22→16:42)
[2021-06-26] MEDS: POLYETHYLENE GLYCOL POWDER 17 GM PACK PO SCH (10:22)
[2021-06-26] MEDS ORDERED: HYDROmorphone 2 MG/1 ML VIAL IV ONE (10:55)
[2021-06-26] MEDS ORDERED: PROMETHAZINE 25 MG SUPP RECTAL PRN (12:57)
[2021-06-26] MEDS ORDERED: FAMOTIDINE 20 MG TABLET PO SCH (21:00)
[2021-06-26] MEDS: PRAMIPEXOLE 0.25 MG TABLET PO SCH (21:30)
[2021-06-26] MEDS: TOPIRAMATE 25 MG TABLET PO SCH (21:31)
[2021-06-27 05:36] LABS: Basophils # 0.1 10*3/uL (0.0-0.2); Basophils % 0.8 % (0.0-0.8); Eosinophils # 0.1 10*3/uL (0.0-0.87); Eosinophils % 1.3 % (0.00-10.9); Hematocrit 30.3 VOL% (35.7-47.0); Hemoglobin 9.3 GM/DL (12.0-16.0); Immature Granulocytes % 1.1 %; Lymphocytes # 1.1 10*3/uL (1.4-4.0); Lymphocytes % 11.7 % (21.3-54.2); Mean Corpuscular HGB Conc 30.7 GM/DL (32-36); Mean Corpuscular Volume 92.9 FL (87-102); Mean Platelet Volume 11.2 FL (9.6-12.0); Monocytes % 8.9 % (1.7-12.7); NRBC # 0.03 10*3/uL; Neutrophils % 76.2 % (38.7-73.9); Platelet Count 597 T/CUMM (130-400); Red Blood Count 3.26 MC/CUMM (3.8-5.5); Red Cell Distribution Width 16.3 % (9.3-17.3); White Blood Count 9.3 T/CUMM (4-12)
[2021-06-27 05:51] LABS: Albumin 1.6 G/DL (3.4-5.0); Bilirubin,Total 0.7 MG/DL (0.20-1.00); Calcium 8.3 MG/DL (8.5-10.1); Osmolality,Calculated 266.4 MOS/KG (273-304); Potassium 2.8 MMOL/L (3.5-5.1); Total Protein 6.7 G/DL (6.4-8.2)
[2021-06-27] MEDS ORDERED: POTASSIUM CHLORIDE 20 MEQ TABLET PO SCH (09:00)
[2021-06-27] MEDS: FUROSEMIDE 40 MG/4 ML VIAL IV SCH ×2 (09:27→17:21)
[2021-06-27] MEDS: ENOXAPARIN 40 MG/0.4 ML SYRINGE SUBCUT SCH (09:27)
[2021-06-27] MEDS: POTASSIUM CHLORIDE 20 MEQ TABLET PO SCH ×2 (09:28→22:00)
[2021-06-27] MEDS: CETIRIZINE 10 MG TABLET PO SCH (09:28)
[2021-06-27] MEDS: TOPIRAMATE 25 MG TABLET PO SCH ×2 (09:28→22:00)
[2021-06-27] MEDS: OMEPRAZOLE ODT 20 MG TABLET PO SCH (09:28)
[2021-06-27] MEDS: DEXAMETHASONE 4 MG TABLET PO SCH (09:29)
[2021-06-27] MEDS: POLYETHYLENE GLYCOL POWDER 17 GM PACK PO SCH (09:29)
[2021-06-27] MEDS ORDERED: POTASSIUM CHLORIDE INJ 50 MEQ in SODIUM CHLORIDE 0.9% 500 ML IV ONE (11:00)
[2021-06-27] MEDS: MORPHINE 4 MG/1 ML VIAL IV PRN (13:56)
[2021-06-27] MEDS: SODIUM HYPOCHLORITE 0.25% IRRIG 473 ML BOTTLE TOP SCH ×2 (14:28→22:04)
[2021-06-27] MEDS: PRAMIPEXOLE 0.25 MG TABLET PO SCH (22:01)
[2021-06-28] MEDS: ONDANSETRON 4 MG/2 ML VIAL IV PRN (00:37)
[2021-06-28] MEDS: LORazepam 2 MG/1 ML VIAL IV PRN (00:40)
[2021-06-28 06:04] LABS: Calcium 7.9 MG/DL (8.5-10.1); Osmolality,Calculated 268.2 MOS/KG (273-304)
[2021-06-28] MEDS: FUROSEMIDE 40 MG/4 ML VIAL IV SCH (08:18)
[2021-06-28] MEDS ORDERED: LORazepam 2 MG/1 ML VIAL IV PRN (09:13)
[2021-06-28] MEDS: ENOXAPARIN 40 MG/0.4 ML SYRINGE SUBCUT SCH (09:19)
[2021-06-28] MEDS: POLYETHYLENE GLYCOL POWDER 17 GM PACK PO SCH (09:19)
[2021-06-28] MEDS: OMEPRAZOLE ODT 20 MG TABLET PO SCH (09:19)
[2021-06-28] MEDS: TOPIRAMATE 25 MG TABLET PO SCH ×2 (09:19→21:05)
[2021-06-28] MEDS: SODIUM HYPOCHLORITE 0.25% IRRIG 473 ML BOTTLE TOP SCH ×2 (09:20→21:09)
[2021-06-28] MEDS: CETIRIZINE 10 MG TABLET PO SCH (09:20)
[2021-06-28] MEDS: DEXAMETHASONE 4 MG TABLET PO SCH (09:20)
[2021-06-28] MEDS: CHOLECALCIFEROL 1,000 UNIT TABLET PO SCH (09:20)
[2021-06-28] MEDS: POTASSIUM CHLORIDE 20 MEQ TABLET PO SCH ×2 (09:20→21:06)
[2021-06-28] MEDS: MORPHINE 4 MG/1 ML VIAL IV PRN (15:34)
[2021-06-28] MEDS: PRAMIPEXOLE 0.25 MG TABLET PO SCH (21:06)
[2021-06-29 05:15] LABS: Calcium 8.2 MG/DL (8.5-10.1); Osmolality,Calculated 266.4 MOS/KG (273-304); Potassium 3.5 MMOL/L (3.5-5.1)
[2021-06-29 07:21] VITALS: BP 121/64
[2021-06-29] MEDS ORDERED: DEXAMETHASONE 4 MG TABLET PO SCH (09:00)
[2021-06-29] MEDS: POTASSIUM CHLORIDE 20 MEQ TABLET PO SCH (09:06)
[2021-06-29] MEDS: TOPIRAMATE 25 MG TABLET PO SCH (09:06)
[2021-06-29] MEDS: CHOLECALCIFEROL 1,000 UNIT TABLET PO SCH (09:06)
[2021-06-29] MEDS: CETIRIZINE 10 MG TABLET PO SCH (09:07)
[2021-06-29] MEDS: POLYETHYLENE GLYCOL POWDER 17 GM PACK PO SCH (09:08)
[2021-06-29] MEDS: SODIUM HYPOCHLORITE 0.25% IRRIG 473 ML BOTTLE TOP SCH (09:08)
[2021-06-29] MEDS: ENOXAPARIN 40 MG/0.4 ML SYRINGE SUBCUT SCH (09:08)
[2021-06-29] MEDS: OMEPRAZOLE ODT 20 MG TABLET PO SCH (09:09)
== END 2021-06-29 11:20 | DRG 853 ==
LOC: EDBD → EDUNIT# → N.ED 13:07 → SUATTDRO 15:11 → N.EDINP 15:11 → N.CC 16:29 → N.5E 06-26 19:34
PROVIDERS: ADMIT Internal Medicine; ATTEND Internal Medicine Geriatric Medicine